=== PATIENT | female | born 1950 | race Caucasian/White ===

== ENCOUNTER 2020-03-01 08:34 | Emergency (ER) | payer MEDICARE, SELFPAY ==
--- NOTE | 2020-03-01 08:36 | CT_ITS ---
WS: [id number] CT CERVICAL TRAUMA TECHNIQUE: Noncontrast CT of the cervical spine with coronal and sagittal reformatted images. CLINICAL INFORMATION: fall, cerivcal spine point tenderness COMPARISON: None. DLP: 370.[address] scans at [facility] use at least one of these dose optimization techniques: automat ed exposure control; mA and/or kV adjustment per patient size (includes targeted exams where dose is matched to clinical indication); or iterative reconstruction. FINDINGS: Straightening of the normal cervical lordosis. Normal craniocervical junction. Normal C1-C2 articulat ion. Dens is normal in appearance. Normal occipital condyles. No high-grade spinal canal narrowing. N ormal C1 ring. No evidence of acute fracture or dislocation. . Mild spondylitic changes. Disc space narrowing worse at C5-C6 and C6-C7. Osteophytic ridging. Di l C1-2 articulation. Normal dens. Normal prevertebral soft tissues. Mastoids air cells are well aerated. CT/CT cervical spin wo con* [id number] IMPRESSION: No evidence of acute fracture or dislocation.
--- NOTE | 2020-03-01 08:36 | CT_ITS ---
WS: [id number] CT HEAD TECHNIQUE: Noncontrast CT of the head obtained from the skullbase to the vertex. CLINICAL INFORMATION: fall, + LOC COMPARISON: None. DLP: 711.[address] scans at use at least one of these dose optimization techniques: automat ed exposure control; mA and/or kV adjustment per patient size (includes targeted exams where dose is matched to clinical indication); or iterative reconstruction. FINDINGS: No evidence of intracranial hemorrhage or mass effect. Ventricular system and basal cisterns are pollard nt. Moderate small vessel changes with mild parenchymal volume loss. No extra-axial fluid collections . No evidence of mass or mass effect. Normal gupta-white differentiation. Fluid in the ethmoid air cells. CT/CT head wo con* [id number] IMPRESSION: 1. No evidence of intracranial hemorrhage or mass effect. 2. Moderate small vessel changes. Mild parenchymal volume loss. 3. No acute intracranial findings.
--- NOTE | 2020-03-01 08:37 | CT_ITS ---
WS: [id number] CT FACIAL BONES TECHNIQUE: Noncontrast facial bones with coronal and sagittal reformatted images. CLINICAL INFORMATION: trauma - hit face, + LOC COMPARISON: None. DLP: 734.[address] scans at [facility] use at least one of these dose optimization techniques: automat ed exposure control; mA and/or kV adjustment per patient size (includes targeted exams where dose is matched to clinical indication); or iterative reconstruction. FINDINGS: Anterior nasal bones are intact. Fluid in the ethmoid air cells. Mucosal thickening left frontal ethm oidal recess. Maxillary sinuses are well aerated. Mild polypoid mucosal thickening left maxillary sin us. Normal pterygoid plates. Anterior maxillary sinuses are intact. Inferior orbits appear intact. Ma ndible appears intact. CT/CT facial bones wo con* [id number] IMPRESSION: No acute facial fractures.
--- NOTE | 2020-03-01 08:44 | ED_ITS ---
HPI - Fall General: Chief Complaint: Syncope Stated Complaint: syncope Time Seen by Provider: 03/01/20 08:36 Source: patient and family (daughter) Mode of arrival: ambulatory Limitations: no limitations History of Present Illness: HPI Narrative: 69-year-old female patient presents to the emergency department with her daughter. Was on the commode, bent over trying to get a washcloth this morning in the bathroom when she fell over, hit her face on the bathroom floor. She remembers the fall, did not try to stop her fall. Daughter was in the room with her at time of the fall, daughter states Ms. Loza was unresponsive for approximately 30 seconds, normal respirations. She was groggy when she finally came to. She reports 3 to 4-day history of nausea, diarrhea decreased appetite which daughter attributes to because of the weakness. Her spouse is currently hospitalized due to weakness and pneumonia. His Covid testing was negative. Daughter states she is concerned her mother could be ill same causes her father. Mrs. Loza is currently exhibiting nausea, reports is similar to that she has experienced x3 to 4 days. She denies pain upon exam. MD complaint: fall Onset (ago): hour(s) (1) Fall from: standing and from height (distance) (4) Fall witnessed: yes, by family Place fall occurred: home Loss of consciousness: Yes Length of LOC: second(s) Prolonged down time: no Symptoms prior to fall: none Context: other (States lost her balance prior to fall, was bending over to get a washcloth when she just fell over) Location of injury: head and face Associated symptoms-after fall: Reports weakness; Denies abdominal pain, chest pain, headache(s) or neck pain Review of Systems General: Reports: 10 or more systems reviewed and unremarkable except in HPI and below Const: Denies: fever(s), chills or diaphoresis Eyes: Denies: blurry vision or eye redness ENMT: Denies: throat pain, hoarseness, dental pain, ear or mastoid pain, disequilibrium, nasal discharge, nasal congestion or nasal obstruction Card: Denies: chest pain, palpitations, irregular heart rhythm or orthopnea Resp: Denies: dyspnea, productive cough, non-productive cough, wheezing or chest congestion GI: Reports: nausea and diarrhea (2 episodes daily for 2-3 weeks); Denies: abdominal pain, vomiting, heartburn, GI cramping, belching, excessive flatus or pain on defecation : Denies: difficulty voiding or dysuria Musc: Reports: muscle weakness; Denies: neck pain, back pain or muscle cramps Skin/Breast: Denies: rash or pruritus Neuro: Denies: headache(s), weakness in extremities or behavioral changes Psych: Denies: anxiety or depression Diego/Lymph: Denies: easy bruising PFSH ED PFSH: Social History (Updated 03/01/20 @ 08:57 by Praveen Ellis RN) Smoking and tobacco status: never smoked Alcohol intake: never Physical Exam Const: COMMON NORMALS: no acute distress, average body habitus, patient oriented x3, alert and well nourished GENERAL APPEARANCE: cooperative, comfortable, well developed and frail appearing; not in distress and not anxious NUTRITIONAL APPEARANCE: thin ORIENTATION/CONSCIOUSNESS: Yes awake, Yes oriented to person, Yes oriented to place and Yes oriented to time HENMT: COMMON NORMALS: normocephalic, atraumatic, external ears normal, TM's normal bilaterally, Normal external nose present and moist oral mucous membranes HEAD & SCALP: normal to inspection, normocephalic and atraumatic; no hematoma, no scalp lesion and no scalp tenderness FACE & SINUS: normal facial exam, sinuses nontender and face symmetric NOSE: Normal external nose present, Normal septum present and Epistaxis present (dried) bilaterally EXTERNAL EAR: Yes external ears normal TYMPANIC MEMBRANE: TM's normal bilaterally THROAT: posterior oropharynx normal and uvula midline Eye: COMMON NORMALS: Equal, round and reactive pupils present and EOMs intact bilaterally GENERAL EYE: appearance normal, both eyes and all related structures PUPIL: Yes Equal, round and reactive pupils present Neck/C-Spine: COMMON NORMALS: full ROM, no lymphadenopathy and supple GENERAL: Yes normal visual inspection and Yes trachea midline CERVICAL SPINE: Yes cervical ROM normal, No pain with cervical ROM, No Cervical spine tenderness and No Paracervical muscle tenderness Lymph: LYMPHATIC: no lymphadenopathy noted Chest: COMMONS NORMALS: normal inspection of the chest and normal palpation of entire chest wall Resp: COMMON NORMALS: normal respiratory effort and clear to auscultation bilaterally AUSCULTATION: clear to auscultation bilaterally Cardio: COMMON NORMALS: regular rhythm, S1 normal heart sound present and S2 normal heart sound present RHYTHM: regular rhythm HEART SOUNDS: S1 normal heart sound present and S2 normal heart sound present GI: COMMON NORMALS: Soft to palpation and non-tender INSPECTION: Yes normal to inspection PALPATION: Yes Soft to palpation : COMMON NORMALS: Yes no CVA tenderness BLADDER/KIDNEY EXAM: Yes no CVA tenderness Back/Pelvis: COMMON NORMALS: no CVA tenderness, thoracic and lumbar spine normal to inspection, no thoracic nor lumbar tenderness, thoraco-lumbar ROM normal and straight leg raise negative bilaterally PELVIS: Yes buttocks normal Extremity: COMMON NORMALS: normal to inspection, full ROM and capillary refill normal GENERAL: Yes normal exam except as noted Neuro: SINAI COMA SCALE: document GCS findings [place] coma scale eye opening: Spontaneous [place] coma scale verbal response: Orientated [place] coma scale motor response: Obey commands [place] coma scale total score: 15 COMMON NORMALS: patient oriented x3 and no focal motor deficits SENSORIUM/ORIENTATION: Yes alert, Yes oriented to person, Yes oriented to place and Yes oriented to time GAIT: Yes Normal gait present MOTOR EXAM: 5/5 motor strength present throughout, Pronator motor function not present and no tremor noted Psych: COMMON NORMALS: mental status grossly normal, Normal thought process present and cooperative ACTIVITY/MOTOR BEHAVIOR: Yes appropriate eye contact THOUGHT PROCESS: Normal thought process present Skin: COMMON NORMALS: no rashes or lesions noted and turgor normal GENERAL SKIN EXAM: no rashes or lesions noted and turgor normal Course Vital Signs: Vital signs: Vital Signs Temperature 97.2 F L 03/01/20 08:50 Pulse Rate 96 03/01/20 13:44 Respiratory Rate 15 03/01/20 13:44 Blood Pressure 118/76 03/01/20 13:44 Pulse Oximetry 93 03/01/20 13:44 MDM - Fall MDM Narrative: Medical decision making narrative: 69-year-old female patient presents to the emergency department with her daughter due to syncopal episode she experienced this morning. She has history of 3 to 4 days of nausea vomiting with increased weakness, spouse is currently hospitalized due to pneumonia type illness, Covid negative testing. Her work-up here in the ED did not reveal an acute process. Serial EKGs without acute findings, delta troponin negative, CBC without anemia or leukocytosis. Chemistry with slight hypokalemia, 3.4 which was replaced here in the ED. She received IV fluids, Zofran for nausea, nausea resolved patient was able to tolerate fluids and eat pudding without vomiting or nausea. She reports feeling better, wants to go home as her spouse to be discharged tomorrow. CT scan of the head cervical spine and facial bones without fracture/abnormality. Findings discussed with her and her daughter of testing completed today. Advised need for follow-up with her primary care provider for reevaluation to ensure she is improving in the next week. Verbalized understanding. Also advised to return to the ED if she developed worsening symptoms such as vomiting despite use of Zofran and Pepcid. Lab Data: Labs: Lab Results 03/01/20 03/01/20 03/01/20 Range/Units 09:04 10:10 10:10 WBC 7.1 (4.0-10.0) 10^3/ uL RBC 4.61 (4.1-5.3) 10^6/u L Hgb 12.8 (11.5-15.3) g/dL Hct 40.5 (37.0-47.0) % MCV 87.9 (81-99) fL MCH 27.8 L (28.0-34.0) pg MCHC 31.6 (30.0-36.0) g/dL RDW 12.5 (12.1-15.1) % Plt Count 144 (130-400) 10^3/c mm MPV 11.8 H (7.4-10.4) fL Neut % (Auto) 78.2 % Lymph % (Auto) 11.2 % Caldwell % (Auto) 9.9 % Eos % (Auto) 0.0 % Baso % (Auto) 0.1 % Neut # (Auto) 5.54 (1.8-7.7) 10^3/u L Lymph # (Auto) 0.8 (0.8-4.8) 10^3/u L Caldwell # (Auto) 0.7 (0.2-0.9) 10^3/u L Eos # (Auto) 0.0 (0.0-0.8) 10^3/u L Baso # (Auto) 0.0 (0.0-0.1) 10^3/u L Nucleated RBC % (a uto) 0 % Nucleated RBCs # 0.0 /100WBC Sodium 141 (136-145) mmol/L Potassium 3.4 L (3.5-5.1) mmol/L Chloride 103 (98-107) mmol/L Carbon Dioxide 28 (22-29) mmol/L Anion Gap 13.4 (5-19) BUN 15 (8-23) mg/dL Creatinine 0.7 (0.5-0.9) mg/dL GFR Calculation 82.7 L (90-130) mL/min Glucose 106 (65-115) mg/dL Calculated Osmolal ity 293 (285-295) mOsm/k g Calcium 8.4 L (8.5-10.5) mg/dL Total Bilirubin 0.5 (0.15-1.2) mg/dL AST 30 (0-32) U/L ALT 23 (0-33) U/L Alkaline Phosphata se 121 H (35-105) IU/L Troponin T Baselin e (0-10) ng/L Troponin T 120 Min [place] (0-10) ng/L Delta Troponin T (0-10) ABS# Total Protein 6.6 (6.6-8.7) g/dL Albumin 3.9 (3.5-5.2) g/dL Globulin 2.7 (1.3-4.6) g/dL Lipase 47 (13-60) U/L Urine Color Yellow (Yellow) Urine Appearance Sl hazy (CLEAR) Urine pH 5 (5-7) Ur Specific Gravit y 1.020 (1.005-1.030) Urine Protein 1+ H (Negative) Urine Glucose (UA) Norm (Normal) Urine Ketones 1+ H (Negative) Urine Blood 2+ H (Negative) Urine Nitrate Negative (Negative) Urine Bilirubin 1+ H (Negative) Urine Urobilinogen 1 H (Negative) mg/dL Ur Leukocyte Samaria ase Negative (Negative) Urine RBC 5-10 H (0-2) /hpf Urine WBC 0-4 H (0-5) /hpf Ur Squamous Epith Cells 10-15 H (0-5) /hpf Amorphous Sediment Not Reportable Urine Bacteria 2+ H (NONE) /hpf Urine Mucus 2+ /hpf 03/01/20 03/01/20 Range/Units 10:10 12:30 WBC (4.0-10.0) 10^3/ uL RBC (4.1-5.3) 10^6/u L Hgb (11.5-15.3) g/dL Hct (37.0-47.0) % MCV (81-99) fL MCH (28.0-34.0) pg MCHC (30.0-36.0) g/dL RDW (12.1-15.1) % Plt Count (130-400) 10^3/c mm MPV (7.4-10.4) fL Neut % (Auto) % Lymph % (Auto) % [place]dwell % (Auto) % Eos % (Auto) % Baso % (Auto) % Neut # (Auto) (1.8-7.7) 10^3/u L Lymph # (Auto) (0.8-4.8) 10^3/u L [place] # (Auto) (0.2-0.9) 10^3/u L Eos # (Auto) (0.0-0.8) 10^3/u L Baso # (Auto) (0.0-0.1) 10^3/u L Nucleated RBC % (a uto) % Nucleated RBCs # /100WBC Sodium (136-145) mmol/L Potassium (3.5-5.1) mmol/L Chloride (98-107) mmol/L Carbon Dioxide (22-29) mmol/L Anion Gap (5-19) BUN (8-23) mg/dL Creatinine (0.5-0.9) mg/dL GFR Calculation (90-130) mL/min Glucose (65-115) mg/dL Calculated Osmolal ity (285-295) mOsm/k g Calcium (8.5-10.5) mg/dL Total Bilirubin (0.15-1.2) mg/dL AST (0-32) U/L ALT (0-33) U/L Alkaline Phosphata se (35-105) IU/L Troponin T Baselin e 13 H (0-10) ng/L Troponin T 120 Min [place] 12.51 H (0-10) ng/L Delta Troponin T -0.49 L (0-10) ABS# Total Protein (6.6-8.7) g/dL Albumin (3.5-5.2) g/dL Globulin (1.3-4.6) g/dL Lipase (13-60) U/L Urine Color (Yellow) Urine Appearance (CLEAR) Urine pH (5-7) Ur Specific Gravit y (1.005-1.030) Urine Protein (Negative) Urine Glucose (UA) (Normal) Urine Ketones (Negative) Urine Blood (Negative) Urine Nitrate (Negative) Urine Bilirubin (Negative) Urine Urobilinogen (Negative) mg/dL Ur Leukocyte Samaria ase (Negative) Urine RBC (0-2) /hpf Urine WBC (0-5) /hpf Ur Squamous Epith Cells (0-5) /hpf Amorphous Sediment Urine Bacteria (NONE) /hpf Urine Mucus /hpf Imaging Data^: CT Head: Radiologist's impression: [address] [place] [address] CT Scan Report Signed Patient: Teresa Loza Unit #: [id number] : 1950 Age/Sex: 69 / F ADM Date: 03/01/20 Loc: ER Room/Bed: Attending Dr: Ordering Provider/Ordering MD: Nelli Nj Date of Service: 03/01/20 Procedure(s): CT head wo con* [id number] Accession Number(s): [id number] Report Number: [id number] WS: [id number] CT HEAD TECHNIQUE: Noncontrast CT of the head obtained from the skullbase to the vertex. CLINICAL INFORMATION: fall, + LOC COMPARISON: None. DLP: 711.[address] scans at [facility] use at least one of these dose optimization techniques: automated exposure control; mA and/or kV adjustment per patient size (includes targeted exams where dose is matched to clinical indication); or iterative reconstruction. FINDINGS: No evidence of intracranial hemorrhage or mass effect. Ventricular system and basal cisterns are patent. Moderate small vessel changes with mild parenchymal volume loss. No extra-axial fluid collections. No evidence of mass or mass effect. Normal gupta-white differentiation. Fluid in the ethmoid air cells. CT/CT head wo con* [id number] IMPRESSION: 1. No evidence of intracranial hemorrhage or mass effect. 2. Moderate small vessel changes. Mild parenchymal volume loss. 3. No acute intracranial findings. Dictated By: Tim Vuong MD Signed By: Tim Vuong MD Signed Date/Time: 03/01/20 1054 DD/ [address]: Radiologist's impression: [employer] [address] [place] [address] CT Scan Report Signed Patient: Teresa Loza Unit #: [id number] : 1950 Age/Sex: 69 / F ADM Date: 03/01/20 Loc: ER Room/Bed: Attending Dr: Ordering Provider/Ordering MD: Nelli Nj Date of Service: 03/01/20 Procedure(s): CT facial bones wo con* [id number] Accession Number(s): [id number] Report Number: [id number] WS: [id number] CT FACIAL BONES TECHNIQUE: Noncontrast facial bones with coronal and sagittal reformatted images. CLINICAL INFORMATION: trauma - hit face, + LOC COMPARISON: None. DLP: 734.[address] scans at [facility] use at least one of these dose optimization techniques: automated exposure control; mA and/or kV adjustment per patient size (includes targeted exams where dose is matched to clinical indication); or iterative reconstruction. FINDINGS: Anterior nasal bones are intact. Fluid in the ethmoid air cells. Mucosal thickening left frontal ethmoidal recess. Maxillary sinuses are well aerated. Mild polypoid mucosal thickening left maxil moody sinus. Normal pterygoid plates. Anterior maxillary sinuses are intact. Inferior orbits appear intact. Mandible appears intact. CT/CT facial bones wo con* [id number] IMPRESSION: No acute facial fractures. Dictated By: Tim Vuong MD Signed By: Tim Vuong MD Signed Date/Time: 03/01/20 105 DD/ 1055 Other Imaging: Radiologist's impression: [employer] [address] [place] [address] CT Scan Report Signed Patient: Teresa Loza Unit #: [id number] : 1950 Age/Sex: 69 / F ADM Date: 03/01/20 Loc: ER Room/Bed: Attending Dr: Ordering Provider/Ordering MD: Nelli Nj Date of Service: 03/01/20 Procedure(s): CT cervical spin wo con* [id number] Accession Number(s): [id number] Report Number: [id number] WS: [id number] CT CERVICAL TRAUMA TECHNIQUE: Noncontrast CT of the cervical spine with coronal and sagittal reformatted images. CLINICAL INFORMATION: fall, cerivcal spine point tenderness COMPARISON: None. DLP: 370.[address] scans at [facility] use at least one of these dose optimization techniques: automated exposure control; mA and/or kV adjustment per patient size (includes targeted exams where dose is matched to clinical indication); or iterative reconstruction. FINDINGS: Straightening of the normal cervical lordosis. Normal craniocervical junction. Normal C1-C2 articulation. Dens is normal in appearance. Normal occipital condyles. No high- grade spinal canal narrowing. Normal C1 ring. No evidence of acute fracture or dislocation. . Mild spondylitic changes. Disc space narrowing worse at C5-C6 and C6-C7. Osteophytic ridging. Normal C1-2 articulation. Normal dens. Normal prevertebral soft tissues. Mastoids air cells are well aerated. CT/CT cervical spin wo con* [id number] IMPRESSION: No evidence of acute fracture or dislocation. Dictated By: Tim Vuong MD Signed By: Tim Vuong MD Signed Date/Time: 03/01/20 1102 Discharge Plan Discharge Patient Disposition: Home Clinical Impression: Vasovagal syncope, Syncope due to orthostatic hypotension Nausea & vomiting Qualifiers: Vomiting type: unspecified Vomiting Intractability: unspecified Qualified Code(s): R11.2 - Nausea with vomiting, unspecified Condition: Stable Prescriptions: New Zofran 4 mg tablet 4 mg PO Q4H 5 Days Qty: 14 RF: 0 Pepcid 20 mg tablet 20 mg PO BID Qty: 20 RF: 0 No Action multivitamin 1 tab PO DAILY@0800 RF: 0 Discharge Orders: Discharge ED (Routine); Ordered 03/01/20 Ordered By: Nelli Nj Discharge Diet: Advance as tolerated and Clear Liquid Discharge Activity: Limit activity as instructed Patient Instructions: Syncope (ED), Acute Nausea and Vomiting (ED), Hypotension (ED) Activity Restrictions/Additional Instructions: Return to the emergency department if you develop vomiting despite use of Pepcid and Zofran Clear liquid diet then advance as tolerated, avoid fried spicy fatty greasy foods for the next several days. Follow-up with your primary care provider in the next several days, reevaluation will be needed to ensure you are improving Take it easy over the next several days, rest, drink lots of fluids. Coding Level of Care Code ED Cylindrical Mixer for Chg Fwd Exam Comprehensive
[2020-03-01 08:50] VITALS: BP 109/75; PULSE 83; RESP 16; TEMP 36.2; O2SAT 95; BMI 21.9
--- NOTE | 2020-03-01 09:03 | ECG_ITS ---
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 Measurements Intervals [place] Rate: 82 P: 83 IA: 159 QRS: 31 QRSD: 69 T: 96 QT: 357 QTc: 419 Interpretive Statements SINUS RHYTHM POSSIBLE LEFT ATRIAL ENLARGEMENT [-0.1mV P WAVE IN V1/V2] LOW QRS VOLTAGE [QRS DEFLECTION < 0.5/1.0 mV IN LIMB/CHEST LEADS] SEPTAL MYOCARDIAL INFARCTION , OF INDETERMINATE AGE [40+ ms Q WAVE IN V1/V2] No previous ECG available for comparison Electronically Signed On 03-01-2020 16:51:38 [employer]TAIN [employer] PRE[employer]ION [employer]AU by Juhi Meyers M.D. [id number]
--- NOTE | 2020-03-01 09:03 | XR_ITS ---
WS: [id number] Exam: XR chest 1V portable [id number] Date/Time of Exam: 03/01/2020 9:27 AM Reason For Exam: syncope No priors. Questionable of ill-defined 1 cm soft tissue nodule in the right lower lung zone. Left lung is clear. No pleural effusions. Normal cardiomediastinal structures and bony elements. Recommendations: A detailed PA and lateral chest radiograph would be suggested for follow-up. XR/XR chest 1V portable [id number] IMPRESSION: 1. Questionable soft tissue nodule in the right lower lung zone.
[2020-03-01 09:24] VITALS: BP 91/67; BP 97/65; BP 98/70; PULSE 84; PULSE 85; PULSE 93
[2020-03-01 09:41] LABS: Blood Urine 2+ (Negative); Glucose Urine UA Norm (Normal); Ketones Urine 1+ (Negative); Nitrate Urine Negative (Negative); Protein Urine 1+ (Negative); Urine Appearance SL Hazy (CLEAR); Urine Color Yellow (Yellow); pH Urine 5 (5-7)
[2020-03-01 09:42] LABS: Add Urine Microscopic? YES; Bacteria Urine 2+ /hpf; Bilirubin Urine 1+ (Negative); Leukocyte Esterase Urine Negative (Negative); Mucus Urine 2+ /hpf; Urobilinogen Urine 1 mg/dL (Negative); WBC Urine 0-4 /hpf (0-5)
[2020-03-01 09:43] LABS: Add Urine Culture? No
--- NOTE | 2020-03-01 10:19 | XR_ITS ---
WS: [id number] Exam: XR chest 2V* [id number] Date/Time of Exam: 03/01/2020 10:19 AM Reason For Exam: soft tissue nodule rt Comparison with portable chest radiograph performed on the same day at 0904 hours. Previously questioned nodule in the right lower lung zone is not identified on the PA or lateral view . The lungs are bilaterally clear. Normal cardiomediastinal structures and bony elements. No pleural effusions. XR/XR chest 2V* [id number] IMPRESSION: 1. Normal chest.
[2020-03-01 10:35] LABS: Basophils % 0.1 %; Hematocrit 40.5 % (37.0-47.0); Hemoglobin 12.8 g/dL (11.5-15.3); Lymphocytes # 0.8 10^3/uL (0.8-4.8); Lymphocytes % 11.2 %; Mean Corpuscular HGB Conc 31.6 g/dL (30.0-36.0); Mean Corpuscular Hemoglobin 27.8 pg (28.0-34.0); Mean Corpuscular Volume 87.9 fL (81-99); Mean Platelet Volume 11.8 fL (7.4-10.4); Monocytes # 0.7 10^3/uL (0.2-0.9); Monocytes % 9.9 %; Neutrophils # 5.54 10^3/uL (1.8-7.7); Neutrophils % 78.2 %; Nucleated Red Blood Cells % 0 %; Platelet Count 144 10^3/cmm (130-400); Red Blood Count 4.61 10^6/uL (4.1-5.3); Red Cell Distribution Width 12.5 % (12.1-15.1); White Blood Count 7.1 10^3/uL (4.0-10.0)
[2020-03-01] MEDS: sodium chloride 0.9% 500 ML 999 ML IV (10:35)
[2020-03-01] MEDS: ondansetron 2 mg/ML SDV 2 mL 4 MG IVP (10:36)
[2020-03-01 10:52] VITALS: BP 108/58; PULSE 68; RESP 18; O2SAT 98
[2020-03-01 10:53] LABS: Alanine Aminotransferase 23 U/L (0-33); Albumin Level 3.9 g/dL (3.5-5.2); Alkaline Phosphatase 121 IU/L (35-105); Anion Gap 13.4 (5-19); Aspartate Amino Transferase 30 U/L (0-32); Blood Urea Nitrogen 15 mg/dL (8-23); Calcium 8.4 mg/dL (8.5-10.5); Carbon Dioxide 28 mmol/L (22-29); Chloride 103 mmol/L (98-107); Globulin 2.7 g/dL (1.3-4.6); Glomerular Filtration Rate 82.7 mL/min (90-130); Glucose 106 mg/dL (65-115); Lipase 47 U/L (13-60); Osmolality Calculated 293 mOsm/kg (285-295); Potassium 3.4 mmol/L (3.5-5.1); Sodium 141 mmol/L (136-145); Total Bilirubin 0.5 mg/dL (0.15-1.2); Total Protein 6.6 g/dL (6.6-8.7)
--- NOTE | 2020-03-01 11:03 | ECG_ITS ---
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 Measurements Intervals [place] Rate: 79 P: 50 [place]: 169 QRS: 38 QRSD: 74 T: 39 QT: 383 QTc: 440 Interpretive Statements SINUS RHYTHM LOW QRS VOLTAGE IN PRECORDIAL LEADS [QRS DEFLECTION < 1.0 mV IN CHEST LEADS] SEPTAL MYOCARDIAL INFARCTION , OF INDETERMINATE AGE [40+ ms Q WAVE IN V1/V2] Compared to ECG 03/01/2020 09:13:02 No significant changes Electronically Signed On 03-01-2020 16:54:26 SHAPER SET UP OPERATOR by Juhi Meyers M.D. [id number]
[2020-03-01 11:52] LABS: Troponin(5th) Baseline 13 ng/L (0-10)
[2020-03-01 11:56] VITALS: BP 119/70; PULSE 78; RESP 15; O2SAT 95
[2020-03-01] MEDS: potassium chloride ER 20 mEq Tablet PO (12:40)
[2020-03-01 12:41] VITALS: BP 115/72; PULSE 87; RESP 15; O2SAT 93
[2020-03-01 12:58] LABS: Troponin 5 2HR 12.51 ng/L (0-10)
[2020-03-01 12:59] LABS: Troponin 5 2HR Delta -0.49 ABS# (0-10)
[2020-03-01 13:44] VITALS: BP 118/76; PULSE 96; RESP 15; O2SAT 93
== END 2020-03-01 13:45 | disposition home or self-care (01) ==
PROVIDERS: Emergency Provider Nurse Practitioner Family
DX: R55 Syncope and collapse (principal); I95.1 Orthostatic hypotension; R11.2 Nausea with vomiting, unspecified
CPT/HCPCS: 12345; 36415; 70450; 70486; 71045; 71046; 72125; 80053; 81001; 83690; 84484; 85025; 93005; 96374; 99283; J2405; J7040

== ENCOUNTER 2020-03-04 21:20 | Emergency (ER) | payer MEDICARE, SELFPAY ==
[2020-03-04 21:25] VITALS: BP 145/95; PULSE 103; RESP 18; TEMP 36.7; O2SAT 95; BMI 21.9
--- NOTE | 2020-03-04 22:05 | XRR_ITS ---
PROCEDURE INFORMATION: Exam: XR Chest, 1 View Exam date and time: 03/04/2020 10:06 PM Age: 69 years old Clinical indication: Dyspnea; Additional info: SOB TECHNIQUE: Imaging protocol: XR of the chest Views: 1 view. COMPARISON: CR XR chest 2V* [id number] 03/01/2020 10:25 AM FINDINGS: Lungs: There is minimal patchy ground-glass opacity in the right lung, unchanged since yesterday. No consolidation. Pleural space: There is no pleural effusion or pneumothorax. Heart/Mediastinum: Cardiomediastinal contours are unremarkable. Bones/joints: Bones are unremarkable. XR/XR chest 1V portable [id number] IMPRESSION: Minimal nonspecific right pulmonary opacity, unchanged since yesterday.
--- NOTE | 2020-03-04 22:06 | W.ED.SOB ---
HPI - SOB/Dyspnea General: Chief Complaint: Shortness of Breath/Dyspnea Stated Complaint: SOB, weakness Time Seen by Provider: 03/04/20 22:05 History of Present Illness: HPI Narrative: Patient is a 69-year-old female comes to the ED with shortness of breath. Patient was seen here on March 01 for syncopal episode and after labs and imaging it was determined it was possibly a vasovagal syncopal episode. No other past medical history noted. She comes here to the ED tonight because she started developing some shortness of breath within the last couple hours. Patient was sitting down when it started. She denies any chest pain. She describes it is feeling like she just cannot take a deep enough breath. She denies any fever, cough, hemoptysis, loss of taste or smell, body aches, nausea/vomiting, abdominal pain, bladder or bowel symptoms. Denies any lower leg swelling, history of blood clot, DVT or PE. Denies any COPD or asthma and is not on any oxygen at home. Patient does endorse been a little less active over the past couple weeks. Associated symptoms: Deny abdominal pain, chest pain, fever(s), nausea, orthopnea, palpitations or vomiting Review of Systems Const: Denies: fever(s), chills or fatigue Eyes: Denies: change in vision or eye discomfort ENMT: Denies: throat pain, odynophagia, nasal discharge or nasal congestion Card: Denies: chest pain, palpitations, edema, swelling of feet/ankles, dyspnea on exertion or orthopnea Resp: Reports: dyspnea; Denies: productive cough or non-productive cough GI: Denies: abdominal pain, nausea, vomiting, diarrhea, constipation or hematochezia : Denies: flank pain, dysuria or hematuria Musc: Denies: neck pain, back pain or extremity swelling Skin/Breast: Denies: rash or new lesions Neuro: Denies: headache(s), numbness in extremities or weakness in extremities PFSH ED PFSH: Social History Smoking and tobacco status: never smoked Alcohol intake: never Physical Exam Const: COMMON NORMALS: no acute distress, patient oriented x3, healthy appearing and alert GENERAL APPEARANCE: cooperative and comfortable HENMT: COMMON NORMALS: normocephalic HEAD & SCALP: normocephalic MOUTH: Normal oral and palatal mucosa present THROAT: posterior oropharynx normal and uvula midline Eye: COMMON NORMALS: Equal, round and reactive pupils present PUPIL: Yes Equal, round and reactive pupils present Neck/C-Spine: COMMON NORMALS: supple GENERAL: Yes normal visual inspection Resp: COMMON NORMALS: normal respiratory effort, No retractions, No use of accessory muscles and clear to auscultation bilaterally EFFORT & INSPECTION: Yes able to speak in complete sentences, No tachypneic, No respiratory distress and No labored AUSCULTATION: clear to auscultation bilaterally Cardio: COMMON NORMALS: regular rate, regular rhythm, S1 normal heart sound present, S2 normal heart sound present, No gallops present (Cardio), No clicks present (Cardio), No murmurs present (Cardio) and Peripheral pulses 2+ throughout RATE: regular rate RHYTHM: regular rhythm HEART SOUNDS: S1 normal heart sound present and S2 normal heart sound present PERIPHERAL PULSES: Peripheral pulses 2+ throughout GI: COMMON NORMALS: Normal to inspection, nondistended, normoactive bowel sounds present, Soft to palpation, non-tender and no masses PALPATION: Yes Soft to palpation : COMMON NORMALS: Yes no CVA tenderness BLADDER/KIDNEY EXAM: Yes no CVA tenderness Back/Pelvis: COMMON NORMALS: no CVA tenderness Extremity: COMMON NORMALS: normal to inspection and no pedal edema Neuro: COMMON NORMALS: patient oriented x3 and moves all extremities SENSORIUM/ORIENTATION: Yes alert Skin: GENERAL SKIN EXAM: dry skin Course Reevaluation(s): Reevaluation #1: I went in and talked with the patient about the CT of the chest results showing no PE but some features of mild viral bilateral lung disease noted on CT. Patient says she has had no upper respiratory symptoms and is not concerned about being exposed to Covid. I offered Covid testing to patient tonight and told her about possible monoclonal antibody treatment if she did test positive. Patient says she would like to discharge home and if she develops any other upper respiratory infection symptoms or Covid symptoms she will either return to ED, PCP or urgent care to be tested for Covid. She does not want any Covid testing tonight. Time: 00:29 Vital Signs: Vital signs: Vital Signs Temperature 98.0 F 03/04/20 21:25 Pulse Rate 94 03/05/20 01:11 Respiratory Rate 22 H 03/05/20 01:11 Blood Pressure 138/92 03/05/20 01:11 Pulse Oximetry 91 03/05/20 01:11 MDM - SOB/Dyspnea MDM Narrative: Medical decision making narrative: Patient is a 69-year-old female comes to the ED with acute shortness of breath. Says it started approximately couple hours ago while at rest. Denies any other symptoms such as chest pain, cough, fever, nausea/vomiting or any other upper respiratory symptoms. Patient was seen here on March 01 for syncopal episode. Exam findings showed patient lying comfortably on exam bed in no acute distress or pain. She was showing no signs of any respiratory distress. Lungs were clear to auscultation bilaterally. 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 Respirations 18. Pulse ranged from 95-100. Temp 98. Blood pressure 138/92. CBC and CMP were unremarkable. Troponin negative and EKG showed sinus rhythm with no ST segment elevation or depression seen. D-dimer slightly elevated at 0.84. Chest x-ray showed no acute findings. I ordered a CTA of the chest due to this being her second visit here in the ED and the elevated D-dimer. CTA of chest showed no PE, but did show some mild viral bilateral lung disease. I told patient about findings and recommended that we could do Covid testing on patient and I told her about the monoclonal antibody treatment for Covid as a possible option if she does test positive. Due to patient not having any other symptoms besides shortness of breath, she decided not to get any Covid testing. I told patient that if she is develops any other symptoms of upper respiratory infection, fever or worsening shortness of breath she should come to the ED for reevaluation and Covid testing. She was given a dose of Solu-Medrol while here in the ED and sent home with a prescription for Medrol Dosepak. Follow-up with PCP in 7 to 10 days for reevaluation. Patient understood and agreed with plan. Lab Data: Attestation: I reviewed the patient's lab results. Labs: Lab Results 03/04/20 03/04/20 03/04/20 Range/Units 21:49 22:00 22:00 WBC 9.4 (4.0-10.0) 10^3/ uL RBC 4.45 (4.1-5.3) 10^6/u L Hgb 12.6 (11.5-15.3) g/dL Hct 39.7 (37.0-47.0) % MCV 89.2 (81-99) fL MCH 28.3 (28.0-34.0) pg MCHC 31.7 (30.0-36.0) g/dL RDW 12.6 (12.1-15.1) % Plt Count 270 (130-400) 10^3/c mm MPV 10.5 H (7.4-10.4) fL Neut % (Auto) 69.0 % Lymph % (Auto) 18.6 % Brooks % (Auto) 9.3 % Eos % (Auto) 1.4 % Baso % (Auto) 0.3 % Neut # (Auto) 6.51 (1.8-7.7) 10^3/u L Lymph # (Auto) 1.8 (0.8-4.8) 10^3/u L Brooks # (Auto) 0.9 (0.2-0.9) 10^3/u L Eos # (Auto) 0.1 (0.0-0.8) 10^3/u L Baso # (Auto) 0.0 (0.0-0.1) 10^3/u L Nucleated RBC % (a uto) 0 % Nucleated RBCs # 0.0 /100WBC D-Dimer (0-0.59) ug/mIFE U Sodium 142 (136-145) mmol/L Potassium 4.0 (3.5-5.1) mmol/L Chloride 105 (98-107) mmol/L Carbon Dioxide 25 (22-29) mmol/L Anion Gap 16.0 (5-19) BUN 13 (8-23) mg/dL Creatinine 0.6 (0.5-0.9) mg/dL GFR Calculation 98.8 (90-130) mL/min Glucose 156 H (65-115) mg/dL Calculated Osmolal ity 297 H (285-295) mOsm/k g Calcium 9.2 (8.5-10.5) mg/dL Total Bilirubin 0.2 (0.15-1.2) mg/dL AST 26 (0-32) U/L ALT 25 (0-33) U/L Alkaline Phosphata se 109 H (35-105) IU/L Troponin T Baselin e (0-10) ng/L Troponin T 120 Min adriana (0-10) ng/L Delta Troponin T (0-10) ABS# NT-Pro-B Natriuret Pep 161 H (0-125) pg/mL Total Protein 6.4 L (6.6-8.7) g/dL Albumin 3.5 (3.5-5.2) g/dL Globulin 2.9 (1.3-4.6) g/dL Urine Color Yellow (Yellow) Urine Appearance Clear (CLEAR) Urine pH 6.5 (5-7) Ur Specific Gravit y 1.010 (1.005-1.030) Urine Protein Neg (Negative) Urine Glucose (UA) Norm (Normal) Urine Ketones Negative (Negative) Urine Blood Neg (Negative) Urine Nitrate Negative (Negative) Urine Bilirubin Neg (Negative) Urine Urobilinogen Norm (Negative) mg/dL Ur Leukocyte Samaria ase Negative (Negative) Urine RBC 0-4 H (0-2) /hpf Urine WBC 0-4 H (0-5) /hpf Ur Squamous Epith Cells 10-15 H (0-5) /hpf Amorphous Sediment Not Reportable Urine Bacteria 1+ H (NONE) /hpf 03/04/20 03/04/20 03/05/20 Range/Units 22:00 22:00 00:25 WBC (4.0-10.0) 10^3/ uL RBC (4.1-5.3) 10^6/u L Hgb (11.5-15.3) g/dL Hct (37.0-47.0) % MCV (81-99) fL MCH (28.0-34.0) pg MCHC (30.0-36.0) g/dL RDW (12.1-15.1) % Plt Count (130-400) 10^3/c mm MPV (7.4-10.4) fL Neut % (Auto) % Lymph % (Auto) % Brooks % (Auto) % Eos % (Auto) % Baso % (Auto) % Neut # (Auto) (1.8-7.7) 10^3/u L Lymph # (Auto) (0.8-4.8) 10^3/u L Brooks # (Auto) (0.2-0.9) 10^3/u L Eos # (Auto) (0.0-0.8) 10^3/u L Baso # (Auto) (0.0-0.1) 10^3/u L Nucleated RBC % (a uto) % Nucleated RBCs # /100WBC D-Dimer 0.84 H (0-0.59) ug/mIFE U Sodium (136-145) mmol/L Potassium (3.5-5.1) mmol/L Chloride (98-107) mmol/L Carbon Dioxide (22-29) mmol/L Anion Gap (5-19) BUN (8-23) mg/dL Creatinine (0.5-0.9) mg/dL GFR Calculation (90-130) mL/min Glucose (65-115) mg/dL Calculated Osmolal ity (285-295) mOsm/k g Calcium (8.5-10.5) mg/dL Total Bilirubin (0.15-1.2) mg/dL AST (0-32) U/L ALT (0-33) U/L Alkaline Phosphata se (35-105) IU/L Troponin T Baselin e 9 (0-10) ng/L Troponin T 120 Min adriana 9.29 (0-10) ng/L Delta Troponin T 0.29 (0-10) ABS# NT-Pro-B Natriuret Pep (0-125) pg/mL Total Protein (6.6-8.7) g/dL Albumin (3.5-5.2) g/dL Globulin (1.3-4.6) g/dL Urine Color (Yellow) Urine Appearance (CLEAR) Urine pH (5-7) Ur Specific Gravit y (1.005-1.030) Urine Protein (Negative) Urine Glucose (UA) (Normal) Urine Ketones (Negative) Urine Blood (Negative) Urine Nitrate (Negative) Urine Bilirubin (Negative) Urine Urobilinogen (Negative) mg/dL Ur Leukocyte Samaria ase (Negative) Urine RBC (0-2) /hpf Urine WBC (0-5) /hpf Ur Squamous Epith Cells (0-5) /hpf Amorphous Sediment Urine Bacteria (NONE) /hpf Imaging Data^: CXR: Attestation: I personally reviewed and interpreted this imaging study as follows: My impression: Chest x-ray shows no acute findings or infiltrates. Radiologist's impression: [facility] [address] [place] [address] XRay Report Signed Patient: Teresa Loza Unit #: [id number] : 1950 Age/Sex: 69 / F ADM Date: 03/04/20 Loc: ER Room/Bed: Attending Dr: Ordering Provider/Ordering MD: Vince Dorado Date of Service: 03/04/20 Procedure(s): XR chest 1V portable [id number] Accession Number(s): [id number] Report Number: [id number] PROCEDURE INFORMATION: Exam: XR Chest, 1 View Exam date and time: 03/04/2020 10:06 PM Age: 69 years old Clinical indication: Dyspnea; Additional info: SOB TECHNIQUE: Imaging protocol: XR of the chest Views: 1 view. COMPARISON: CR XR chest 2V* [id number] 03/01/2020 10:25 AM FINDINGS: Lungs: There is minimal patchy ground-glass opacity in the right lung, unchanged since yesterday. No consolidation. Pleural space: There is no pleural effusion or pneumothorax. Heart/Mediastinum: Cardiomediastinal contours are unremarkable. Bones/joints: Bones are unremarkable. XR/XR chest 1V portable [id number] IMPRESSION: Minimal nonspecific right pulmonary opacity, unchanged since yesterday. Dictated By: Herminio Delaney MD Signed By: Herminio Delaney MD Signed Date/Time: 03/05/2014 DD/ CT Chest: Attestation: I personally reviewed and interpreted this imaging study as follows: Radiologist's impression: [facility] [address] [place] [address] CT Scan Report Signed Patient: Janneth Lozat #: [id number] : 1950Acct#:[id number] Age/Sex: 69 / FADM Date: 03/04/20 Loc: ERRoom/Bed: Attending Dr: Ordering Provider/Ordering MD: Vince Dorado Date of Service: 01/02/21 Procedure(s): CT angio chest PE protcl [id number] Accession Number(s): [id number] Report Number: [id number] PROCEDURE INFORMATION: Exam: CT Angiography Chest With Contrast Exam date and time: 03/04/2020 11:27 PM Age: 69 years old Clinical indication: Shortness of breath; Patient HX: C/O SOB TECHNIQUE: Imaging protocol: Computed tomographic angiography of the chest with intravenous contrast. 3D rendering (Not supervised by radiologist): MIP and/or 3D reconstructed images were created by the technologist. Radiation optimization: All CT scans at this facility use at least one of these dose optimization techniques: automated exposure control; mA and/or kV adjustment per patient size (includes targeted exams where dose is matched to clinical indication); or iterative reconstruction. Contrast material: OMNI 350; Contrast volume: 60 ml; Contrast route: INTRAVENOUS (IV); COMPARISON: CR (CHEST, ) 03/04/2020 10:43 PM RADIATION DOSE METRICS: Total DLP (mGy-cm): 459.38 FINDINGS: Pulmonary arteries: The pulmonary arteries are adequately opacified for evaluation to the subsegmental level. There is no filling defect to suggest embolism. Aorta: The aorta is unremarkable. There is no aneurysm. Lungs: There is mild bilateral lung disease characterized by patchy ground-glass and reticular opacities, asymmetrically greater on the right. Pleural space: No pleural effusion or pneumothorax. Heart: Heart size is normal. There is no pericardial effusion. There is mild coronary artery calcification. Lymph nodes: There is no mediastinal or hilar lymphadenopathy. Bones/joints: Bones are unremarkable. Soft tissues: The extrathoracic soft tissues are unremarkable. Other findings: Visible structures in the upper abdomen are unremarkable. CT/CT angio chest PE protcl [id number] IMPRESSION: 1. No pulmonary embolism. 2. Mild bilateral lung disease. Commonly reported imaging features of COVID-19 pneumonia are present. Other processes such as influenza pneumonia and organizing pneumonia (as can be seen with drug toxicity and connective tissue disease), can produce a similar imaging pattern. Radiation Dose CTDIVOL = (mGy): DLP = 459.38 (mGy-cm) Dictated By:Herminio Delaney MD Signed By:Herminio Delaneyigned Date/Time:03/05/20 0000 DD/ 2359 EKG Data^: EKG 1: Attestation: I personally reviewed and interpreted this EKG as follows: EKG Interpretation Date: 03/04/20 Interpretation: Sinus tachycardia. [address] segment elevation or depression seen. Discharge Plan Discharge Patient Disposition: Home Clinical Impression: Shortness of breath Condition: Stable Prescriptions: New Medrol (Toni) 4 mg tablets,dose pack See Rx Instructions .ROUTE .COMPLEX Qty: 21 RF: 0 No Action Zofran 4 mg tablet 4 mg PO Q4H 5 Days Qty: 14 RF: 0 multivitamin 1 tab PO DAILY@0800 RF: 0 Pepcid 20 mg tablet 20 mg PO BID Qty: 20 RF: 0 Discharge Orders: Discharge ED (Routine); Ordered 03/05/20 Ordered By: Vince Dorado Discharge Diet: Regular Discharge Activity: Resume usual activity Patient Instructions: Dyspnea (ED) Activity Restrictions/Additional Instructions: Follow-up with medical provider as directed in 7 to 10 days for reevaluation. If you start developing any other symptoms of an upper respiratory infection you can go to PCP, urgent care or ED to get tested for Covid. take medications as prescribed. Return to the ER or your medical provider if condition worsens. Please read and understand discharge instructions. If any questions, please ask. Coding Level of Care Code ED Supervisor Heavy Equipment for Jeffrey Fwd Exam Comprehensive
[2020-03-04 22:14] LABS: Basophils % 0.3 %; Eosinophils # 0.1 10^3/uL (0.0-0.8); Eosinophils % 1.4 %; Hematocrit 39.7 % (37.0-47.0); Hemoglobin 12.6 g/dL (11.5-15.3); Lymphocytes # 1.8 10^3/uL (0.8-4.8); Lymphocytes % 18.6 %; Mean Corpuscular HGB Conc 31.7 g/dL (30.0-36.0); Mean Corpuscular Hemoglobin 28.3 pg (28.0-34.0); Mean Corpuscular Volume 89.2 fL (81-99); Mean Platelet Volume 10.5 fL (7.4-10.4); Monocytes # 0.9 10^3/uL (0.2-0.9); Monocytes % 9.3 %; Neutrophils # 6.51 10^3/uL (1.8-7.7); Nucleated Red Blood Cells % 0 %; Platelet Count 270 10^3/cmm (130-400); Red Blood Count 4.45 10^6/uL (4.1-5.3); Red Cell Distribution Width 12.6 % (12.1-15.1); White Blood Count 9.4 10^3/uL (4.0-10.0)
[2020-03-04 22:32] LABS: Troponin(5th) Baseline 9 ng/L (0-10)
[2020-03-04 22:41] LABS: Alanine Aminotransferase 25 U/L (0-33); Albumin Level 3.5 g/dL (3.5-5.2); Alkaline Phosphatase 109 IU/L (35-105); Aspartate Amino Transferase 26 U/L (0-32); Blood Urea Nitrogen 13 mg/dL (8-23); Calcium 9.2 mg/dL (8.5-10.5); Carbon Dioxide 25 mmol/L (22-29); Chloride 105 mmol/L (98-107); Globulin 2.9 g/dL (1.3-4.6); Glomerular Filtration Rate 98.8 mL/min (90-130); Glucose 156 mg/dL (65-115); NT Pro B Type Natriuretic Pept 161 pg/mL (0-125); Osmolality Calculated 297 mOsm/kg (285-295); Sodium 142 mmol/L (136-145); Total Bilirubin 0.2 mg/dL (0.15-1.2); Total Protein 6.4 g/dL (6.6-8.7)
[2020-03-04 22:51] LABS: Bilirubin Urine Neg (Negative); Blood Urine Neg (Negative); Glucose Urine UA Norm (Normal); Ketones Urine Negative (Negative); Leukocyte Esterase Urine Negative (Negative); Nitrate Urine Negative (Negative); Protein Urine Neg (Negative); Urine Appearance Clear (CLEAR); Urine Color Yellow (Yellow); Urobilinogen Urine Norm (Negative); pH Urine 6.5 (5-7)
[2020-03-04 22:54] LABS: Slide Review Slide Review Perform
[2020-03-04 23:05] LABS: D Dimer 0.84 ug/mIFEU (0-0.59)
[2020-03-04 23:09] LABS: Add Urine Culture? No; Bacteria Urine 1+ /hpf; RBC Urine 0-4 /hpf (0-2); WBC Urine 0-4 /hpf (0-5)
--- NOTE | 2020-03-04 23:15 | CTR_ITS ---
PROCEDURE INFORMATION: Exam: CT Angiography Chest With Contrast Exam date and time: 03/04/2020 11:27 PM Age: 69 years old Clinical indication: Shortness of breath; Patient HX: C/O SOB TECHNIQUE: Imaging protocol: Computed tomographic angiography of the chest with intravenous contrast. 3D rendering (Not supervised by radiologist): MIP and/or 3D reconstructed images were created by the technologist. Radiation optimization: All CT scans at this facility use at least one of these dose optimization techniques: automated exposure control; mA and/or kV adjustment per patient size (includes targeted exams where dose is matched to clinical indication); or iterative reconstruction. Contrast material: OMNI 350; Contrast volume: 60 ml; Contrast route: INTRAVENOUS (IV); COMPARISON: CR (CHEST, ) 03/04/2020 10:43 PM RADIATION DOSE METRICS: Total DLP (mGy-cm): 459.38 FINDINGS: Pulmonary arteries: The pulmonary arteries are adequately opacified for evaluation to the subsegmental level. There is no filling defect to suggest embolism. Aorta: The aorta is unremarkable. There is no aneurysm. Lungs: There is mild bilateral lung disease characterized by patchy ground-glass and reticular opacities, asymmetrically greater on the right. Pleural space: No pleural effusion or pneumothorax. Heart: Heart size is normal. There is no pericardial effusion. There is mild coronary artery calcification. Lymph nodes: There is no mediastinal or hilar lymphadenopathy. Bones/joints: Bones are unremarkable. Soft tissues: The extrathoracic soft tissues are unremarkable. Other findings: Visible structures in the upper abdomen are unremarkable. CT/CT angio chest PE protcl [id number] IMPRESSION: 1. No pulmonary embolism. 2. Mild bilateral lung disease. Commonly reported imaging features of COVID-19 pneumonia are present. Other processes such as influenza pneumonia and organizing pneumonia (as can be seen with drug toxicity and connective tissue disease), can produce a similar imaging pattern. Radiation Dose CTDIVOL = (mGy): DLP = 459.38 (mGy-cm)
[2020-03-04] MEDS: iohexol 350 mg/mL 100 mL Btl IV (23:38)
--- NOTE | 2020-03-05 00:05 | ECG_ITS ---
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 [email or web address]
[2020-03-05 00:50] LABS: Troponin 5 2HR 9.29 ng/L (0-10); Troponin 5 2HR Delta 0.29 ABS# (0-10)
[2020-03-05 01:11] VITALS: BP 138/92; PULSE 94; RESP 22; O2SAT 91
--- NOTE | 2020-03-05 01:49 | PC.NURSE ---
This RN agrees with bondactor machine operator assessment
== END 2020-03-05 01:49 | disposition home or self-care (01) ==
PROVIDERS: Emergency Provider Physician Assistant
DX: R06.02 Shortness of breath (principal)
CPT/HCPCS: 12345; 36415; 71045; 71275; 80053; 81001; 83880; 84484; 85025; 85378; 93005; 96374; 99283; 99284; J2930; Q9967